=== PATIENT | male | born 1980 ===

== ENCOUNTER 2024-04-01 18:32 | Emergency (ER) | payer SELFPAY ==
[~2024-04-01] VITALS: Ht 170.2 cm; Wt 77.3 kg
[2024-04-01 18:42] VITALS: BP 152/109; PULSE 83; RESP 14; TEMP 97.9; O2SAT 98
== END 2024-04-01 19:30 ==
LOC: ER 18:33
DX: Z04.1 Encounter for examination and observation following transport accident (principal); V89.2XXA Person injured in unspecified motor-vehicle accident, traffic, initial encounter; Y93.89 Activity, other specified; Y92.89 Other specified places as the place of occurrence of the external cause; Y99.8 Other external cause status
CPT/HCPCS: 99283